=== PATIENT | female | born 1990 | race Caucasian/White ===

== ENCOUNTER 2020-10-11 18:28 | Emergency (ER) | payer OTHER ==
[~2020-10-11 18:28] MED LIST: CARAFATE1 GM PO; NORCO 5-325 TA1 EACH PO; ONDANSETRON ODT4 MG SL; PEPCID AC20 MG PO
[2020-10-11 19:53] LABS: BILIRUBIN NEGATIVE (NEGATIVE); BLOOD TRACE-INTACT Ery/uL (NEGATIVE); CLARITY CLEAR (CLEAR); COLOR YELLOW (YELLOW); GLUCOSE (U) NORMAL (NORMAL); LEUKOCYTES NEGATIVE Leu/uL (NEGATIVE); NITRITE NEGATIVE (NEGATIVE); PROTEIN NEGATIVE (NEGATIVE); SPECIFIC GRAVITY 1.025 (1.001-1.030); UROBILINOGEN 0.2 mg/dL (0.2-1.0); pH 5.5 (5.0-9.0)
[2020-10-11 19:53] LABS: BASOPHIL 0.1 % (0-2); EOSINOPHIL 0.3 % (0-5); HCT 39.2 % (37.0-47.0); HGB 13.4 g/dl (12.5-16.0); LYMPHOCYTE 10.2 % (15-48); MCHC 34.2 g/dL (32.0-36.0); MCV 93.6 fL (78.0-100.0); MONOCYTE 3.8 % (0-12); MPV 11.2 fL (6.0-9.5); NEUTROPHIL 85.1 % (41-80); NRBC 0; PLT 282 K/uL (150-400); RBC 4.19 M/uL (4.20-5.40); RDW 12.2 % (11.5-14.0); WBC 15.1 K/uL (4.0-10.5)
[2020-10-11 19:57] LABS: URINARY RBC RARE; URINARY WBC RARE
[2020-10-11 19:58] LABS: BACTERIA 1+
[2020-10-11 20:19] LABS: LACTIC ACID 0.5 mmol/L (0.4-1.9)
[2020-10-11 20:23] LABS: ALBUMIN 4.2 g/dL (3.4-5.0); BILIRUBIN - TOTAL 0.6 mg/dL (0.2-1.0); CREATININE 0.8 mg/dL (0.51-0.95); GLOBULIN (CALCULATION) 3.9 g/dL; POTASSIUM 3.8 mmol/L (3.5-5.1); TOTAL PROTEIN 8.1 g/dL (6.4-8.2)
[2020-10-11] MEDS ORDERED: BENTYL10 MG PO (22:25)
[2020-10-11] MEDS ORDERED: PEPCID AC20 MG PO (22:25)
[2020-10-11] MEDS ORDERED: ZOFRAN4 M1 PO (22:25)
== END 2020-10-11 22:43 | disposition home or self-care (01) ==
LOC: FER 18:28
PROVIDERS: Nurse Practitioner Family
DX: R10.84 Generalized abdominal pain (principal); R11.2 Nausea with vomiting, unspecified; E86.0 Dehydration; R63.0 Anorexia; M54.5 Low back pain; Z87.19 Personal history of other diseases of the digestive system; Z98.890 Other specified postprocedural states
CPT/HCPCS: 36415; 80053; 81001; 82150; 83605; 83690; 85025; 87040; J1170; J2270; J2405; J2550; J7030; Q9967